=== PATIENT | female | born 1965 | race Caucasian/White ===

== ENCOUNTER 2017-05-14 10:31 | Observation (INO) | payer OTHER ==
--- NOTE | 2017-05-14 11:56 | DR.H&P ---
H&P - History & Physical for Day of: H&P Date: 05/14/17 - Chief Complaint Chief Complaint: CHEST PAIN, SOB - History of Present Illness History of Present Illness: 52 WF DIRECT ADMIT FROM DR HERRERA OFFICE WITH CO CHEST PAIN AND PRESSURE ON AND OFF FOR 1-2 DAYS. PT STATES SHE HAD SYNCOPE EPISODE EARLIER THIS WEEK AND CO CONTINUED DIZZINESS AND SOB. PT HAS PMH OF HTN AND COPD. PT HAD ABNORMAL EKG IN OFFICE, ADMIT FOR CP PROTOCOL, R/O AMI, RESP THERAPY, SERIAL CE'S BP AND LIPID CONTROL - Past Medical History Past Medical History: GERD, Hypertension - Family History Family Medical History: Coronary Artery Disease, Heart Failure, Hypertension - Social History Does patient currently use any type of tobacco product: Yes Have you used tobacco products in the last 12 months: Yes Type of Tobacco Use: Cigarettes Does any household member use tobacco: No Alcohol Use: None Drug Use: None - Review of Systems Constitutional: Weakness Eyes: No Symptoms Reported ENT: No Symptoms Reported Respiratory: Shortness of Breath Cardiovascular: Chest Pain, Light Headedness Gastrointestinal: No Symptoms Reported Genitourinary: No Symptoms Reported Musculoskeletal: No Symptoms Reported Skin: No Symptoms Reported Neurological: Other (DIZZINESS) Oriented: Normal Eyes: Normal Ear: Normal, Right Nose: Normal Throat: Normal Respiratory: RLL Diminished, LLL Diminished Cardiovascular: Tachycardia : Normal Auscultation: Bowel Sounds: Normal Palpation: Normal Tenderness: Normal Skin: Normal Musculoskeletal: Normal Psychiatric: Anxiety Speech Pattern: Clear, Appropriate - Assessment/Plan (1) Chest pain Status: Acute Plan: ADMIT, CARDIAC WORK UP, SERIAL CE'S, EKGS' CXR ON ADMISSION. BP AND LIPID CONTROL, CARDIAC MONITORING. RESP CONTULT, CT HEAD AND CAROTID ARTERY STUDIES (2) Shortness of breath Status: Acute (3) Dizziness Status: Acute (4) Syncopal episodes Status: Acute
[2017-05-14 13:08] LABS: BASOPHILS # (AUTO) 0.1 X10^3/uL (0.0-0.1); BASOPHILS % (AUTO) 0.6 % (0.2-1.0); EOSINOPHILS # (AUTO) 0.1 x10^3/uL (0.0-0.2); EOSINOPHILS % (AUTO) 0.7 % (0.9-2.9); HEMATOCRIT 50.8 % (36.0-47.0); HEMOGLOBIN 17.1 g/dL (12.0-16.0); LYMPHOCYTES # (AUTO) 2.9 X10^3/uL (1.3-2.9); LYMPHOCYTES % (AUTO) 18.1 % (21.0-51.0); MEAN CORPUSCULAR HEMOGLOBIN 29.8 pg (27.0-34.0); MEAN CORPUSCULAR HGB CONC 33.7 g/dL (33.0-35.0); MEAN CORPUSCULAR VOLUME 88.6 fL (80.0-100.0); MEAN PLATELET VOLUME 8.5 fL (7.4-11.0); MONOCYTES # (AUTO) 0.9 x10^3/uL (0.3-0.8); MONOCYTES % (AUTO) 5.9 % (0.0-13.0); NEUTROPHILS # (AUTO) 11.8 x10^3/uL (2.2-4.8); NEUTROPHILS % (AUTO) 74.7 % (42.0-75.0); PLATELET COUNT 316 X10^3/uL (150.0-450.0); RED BLOOD COUNT 5.73 X10^6/uL (3.5-5.4); RED CELL DISTRIBUTION WIDTH 14.4 % (11.6-16.5); WHITE BLOOD COUNT 15.8 X10^3/uL (3.6-10.0)
[2017-05-14 13:24] LABS: ALANINE AMINOTRANSFERASE 30 Units/L (12-78); ALBUMIN 3.7 g/dL (3.4-5.0); ALKALINE PHOSPHATASE 106 Units/L (46-116); ASPARTATE AMINO TRANSFERASE 21 Units/L (15-37); BLOOD UREA NITROGEN 12 mg/dL (7-18); CARBON DIOXIDE 32.8 mmol/L (21-32); CHLORIDE 102 mmol/L (98-107); COR NA(FOR HYPERGLY) 142 mmol/L (136-145); CREATININE 0.66 mg/dL (0.55-1.02); MAGNESIUM 2.2 mg/dL (1.7-2.9); SODIUM 141 mmol/L (136-145); TOTAL PROTEIN 7.6 g/dL (6.4-8.2); eGFR BLACK RACES > 60 (>60); eGFR NON BLACK RACES > 60 (>60)
[2017-05-14 13:36] LABS: CKMB % 1.8 % (<4); CREATINE KINASE 55 Units/L (26-192); CREATINE KINASE MB < 1.0 ng/mL (0-4.0); TROPONIN I < 0.02 ng/mL (0-1.5)
[2017-05-14] MEDS: PROTONIX INJ 40 MG VIAL IVP SCH (14:10)
[2017-05-14 14:19] LABS: BILIRUBIN,URINE NEGATIVE (NEGATIVE); BLOOD/HEMOGLOBIN,URINE NEGATIVE (NEGATIVE); GLUCOSE, URINE NEGATIVE (NEGATIVE); KETONES,URINE NEGATIVE (NEGATIVE); LEUKOCYTE ESTERASE ,URINE NEGATIVE (NEGATIVE); NITRITES,URINE NEGATIVE (NEGATIVE); PROTEIN,URINE NEGATIVE (NEGATIVE); UROBILINOGEN,URINE NORMAL (NORMAL)
[2017-05-14 14:32] LABS: APPEARANCE,URINE CLEAR (CLEAR); BACTERIA,URINE NEGATIVE /HPF (NEGATIVE); COLOR,URINE YELLOW (YELLOW); RBC,URINE 0 /HPF (NEGATIVE); SQUAMOUS EPITHELIAL CELL,UR NEGATIVE /HPF (NEGATIVE)
[2017-05-14 14:37] VITALS: BMI 21.1
--- NOTE | 2017-05-14 16:04 | RAD ---
Examination: Chest, PA and lateral views History: Syncope, hypertension Findings: Normal cardiac size with clear lungs and pleural spaces. There is no mediastinal or hilar a bnormality. Impression: No significant abnormality identified. Reported By:
--- NOTE | 2017-05-14 16:12 | VAS ---
CAROTID ULTRASOUND CLINICAL INDICATION: Syncope PROCEDURE: Pulsed wave and color-flow duplex imaging was utilized to evaluate the extracranial caroti d arteries. COMPARISON: None FINDINGS: Right carotid: Plaque at the bifurcation. No hemodynamically significant stenosis involving the right carotid artery . The velocities are as follows: Distal CCA peak systolic velocity 68 cm/sec and peak end-diastolic velocity 15 cm/sec, ICA peak systo lic velocity 78 cm/sec and peak end-diastolic velocity 38 cm/sec. Flow within the right vertebral and right ECA is directed antegrade. ICA/CCA ratio: 1.15 Left carotid: Plaque at the bifurcation. No hemodynamically significant stenosis involving the left carotid artery. The velocities are as follows: Distal CCA peak systolic velocity 72 cm/sec and peak end-diastolic velocity 18 cm/sec, ICA peak systo lic velocity 59 cm/sec and peak end-diastolic velocity 21 cm/sec. Flow within the left vertebral and left ECA is directed antegrade. ICA/CCA ratio: 0.81 IMPRESSION: 1. No hemodynamically significant stenosis involving either the right or left ICA. 2. Normal peak systolic velocity corresponds to a less than 50% diameter stenosis of the right ICA. 3. Normal peak systolic velocity corresponds to a less than 50% diameter stenosis of the left ICA. Reported By:
--- NOTE | 2017-05-14 16:15 | CT ---
HEAD CT WITHOUT IV CONTRAST CLINICAL INDICATION: Syncope TECHNIQUE: Axial CT images from skull base to vertex without IV contrast.Dose reduction techniques in cluding Automated Exposure Control (AEC) and adjustment of mA and kV were utlized. COMPARISON: None FINDINGS: There is no abnormal brain parenchymal density. There is no evidence of acute infarction, intracrani al hemorrhage, mass or mass effect, or abnormal extra-axial collection. The density of the larger dur al venous sinuses is normal. The ventricles are normal in size, shape and position. The skull base an d calvarium are normal. The included paranasal sinuses and mastoid air cells are predominantly clear. IMPRESSION: 1. No acute intracranial abnormality. Reported By:
[2017-05-14] MEDS ORDERED: K-LYTE EFFERVESCENT PO PRN (17:55)
[2017-05-14 18:31] LABS: CKMB % 2.2 % (<4); CREATINE KINASE 45 Units/L (26-192); CREATINE KINASE MB < 1.0 ng/mL (0-4.0); TROPONIN I < 0.02 ng/mL (0-1.5)
[2017-05-15 01:14] LABS: CKMB % 2.3 % (<4); CREATINE KINASE 43 Units/L (26-192); CREATINE KINASE MB < 1.0 ng/mL (0-4.0); TROPONIN I < 0.02 ng/mL (0-1.5)
[2017-05-15 05:19] LABS: BASOPHILS # (AUTO) 0.1 X10^3/uL (0.0-0.1); BASOPHILS % (AUTO) 0.6 % (0.2-1.0); EOSINOPHILS # (AUTO) 0.3 x10^3/uL (0.0-0.2); EOSINOPHILS % (AUTO) 2.9 % (0.9-2.9); HEMATOCRIT 44.7 % (36.0-47.0); LYMPHOCYTES # (AUTO) 3.4 X10^3/uL (1.3-2.9); LYMPHOCYTES % (AUTO) 28.5 % (21.0-51.0); MEAN CORPUSCULAR HEMOGLOBIN 29.8 pg (27.0-34.0); MEAN CORPUSCULAR HGB CONC 33.5 g/dL (33.0-35.0); MEAN CORPUSCULAR VOLUME 88.7 fL (80.0-100.0); MEAN PLATELET VOLUME 9.1 fL (7.4-11.0); MONOCYTES # (AUTO) 1.1 x10^3/uL (0.3-0.8); MONOCYTES % (AUTO) 8.9 % (0.0-13.0); NEUTROPHILS % (AUTO) 59.1 % (42.0-75.0); PLATELET COUNT 280 X10^3/uL (150.0-450.0); RED BLOOD COUNT 5.04 X10^6/uL (3.5-5.4); RED CELL DISTRIBUTION WIDTH 14.5 % (11.6-16.5); WHITE BLOOD COUNT 11.8 X10^3/uL (3.6-10.0)
[2017-05-15 05:41] LABS: CHOL/HDL RATIO 2.7 (0.0-5.0)
[2017-05-15 06:32] LABS: ALANINE AMINOTRANSFERASE 23 Units/L (12-78); ALBUMIN 2.9 g/dL (3.4-5.0); ALKALINE PHOSPHATASE 91 Units/L (46-116); ASPARTATE AMINO TRANSFERASE 20 Units/L (15-37); BLOOD UREA NITROGEN 14 mg/dL (7-18); CALCIUM 8.6 mg/dL (8.5-10.1); CHLORIDE 104 mmol/L (98-107); COR CA(FOR HYPOALB) 9.5 mg/dL (8.5-10.1); CREATININE 0.49 mg/dL (0.55-1.02); SODIUM 139 mmol/L (136-145); eGFR BLACK RACES > 60 (>60); eGFR NON BLACK RACES > 60 (>60)
[2017-05-15] MEDS ORDERED: COLACE CAP 100 MG PO PRN (07:00)
[2017-05-15] MEDS ORDERED: ASPIRIN PO SCH (09:00)
[2017-05-15] MEDS: PROTONIX INJ 40 MG VIAL IVP SCH (09:43)
[2017-05-15] MEDS ORDERED: NICOTINE PATCH TD SCH (10:00)
[2017-05-15] MEDS ORDERED: MILK OF MAGNESIA PO PRN (14:14)
[2017-05-15 16:27] VITALS: BP 141/97
--- NOTE | 2017-05-15 16:36 | PCM.PROG ---
Progress Note - Progress Note for Day of Date: 05/15/17 - Past Medical Family Social History Past Med/Fam/Surg Hx: No changes since H&P Allergies: Allergies No Known Drug Allergies Allergy (Verified 05/14/17 12:55) - Review of Systems ROS: No change since H&P - Vital Signs and I&O's Vital Signs: Temperature 98.1 F Pulse Rate [Right Brachial] 84 Pulse Rate 100 Respiratory Rate 20 Blood Pressure [Right Arm] 141/97 O2 Sat by Pulse Oximetry 98 Intake and Output: Intake & Output 05/13/17 05/14/17 05/15/17 05/16/17 11:59 11:59 11:59 11:59 Intake Total 960 1220 Output Total 300 Balance 660 1220 - Physical Exam Oriented: Normal Eyes: Normal Ear: Normal, Right Nose: Normal Throat: Normal Respiratory: Normal Cardiovascular: Normal : Normal Auscultation: Bowel Sounds: Normal Palpation: Normal Tenderness: Normal Skin: Normal Musculoskeletal: Normal Psychiatric: Anxiety Speech Pattern: Clear, Appropriate - Laboratory and Diagnostics Result Diagrams: 05/15/17 05:00 05/15/17 04:00 Labs: Laboratory WBC 11.8 X10^3/uL (3.6-10.0) H 05/15/17 05:00 RBC 5.04 X10^6/uL (3.5-5.4) 05/15/17 05:00 Hgb 15.0 g/dL (12.0-16.0) D 05/15/17 05:00 Hct 44.7 % (36.0-47.0) 05/15/17 05:00 MCV 88.7 fL (80.0-100.0) 05/15/17 05:00 MCH 29.8 pg (27.0-34.0) 05/15/17 05:00 MCHC 33.5 g/dL (33.0-35.0) 05/15/17 05:00 RDW 14.5 % (11.6-16.5) 05/15/17 05:00 Plt Count 280 X10^3/uL (150.0-450.0) 05/15/17 05:00 MPV 9.1 fL (7.4-11.0) 05/15/17 05:00 Neut % 59.1 % (42.0-75.0) 05/15/17 05:00 Lymph % 28.5 % (21.0-51.0) 05/15/17 05:00 [place] % 8.9 % (0.0-13.0) 05/15/17 05:00 Eos % 2.9 % (0.9-2.9) 05/15/17 05:00 Baso % 0.6 % (0.2-1.0) 05/15/17 05:00 Neut # 7.0 x10^3/uL (2.2-4.8) H 05/15/17 05:00 Lymph # 3.4 X10^3/uL (1.3-2.9) H 05/15/17 05:00 [place] # 1.1 x10^3/uL (0.3-0.8) H 05/15/17 05:00 Eos # 0.3 x10^3/uL (0.0-0.2) H 05/15/17 05:00 Baso # 0.1 X10^3/uL (0.0-0.1) 05/15/17 05:00 Absolute Nucleated RBC 0.0 /100WBC 05/15/17 05:00 INR Target Range - 05/14/17 12:52 INR 0.97 (0.8-1.3) 05/14/17 12:52 PTT 28.8 SECONDS (22.9-36.5) 05/14/17 12:52 PTT Comment - 05/14/17 12:52 D-Dimer 263 ng/mL (0-400) 05/14/17 12:52 Sodium 139 mmol/L (136-145) 05/15/17 04:00 Corrected Sodium TNP 05/15/17 04:00 Potassium 4.6 mmol/L (3.5-5.1) 05/15/17 04:00 Chloride 104 mmol/L (98-107) 05/15/17 04:00 Carbon Dioxide 29.0 mmol/L (21-32) 05/15/17 04:00 BUN 14 mg/dL (7-18) 05/15/17 04:00 Creatinine 0.49 mg/dL (0.55-1.02) L 05/15/17 04:00 Est GFR (MDRD) Af Amer > 60 (>60) 05/15/17 04:00 Est GFR (MDRD) Non-Af > 60 (>60) 05/15/17 04:00 Glucose 101 mg/dL (65-99) H 05/15/17 04:00 Calcium 8.6 mg/dL (8.5-10.1) 05/15/17 04:00 Corrected Calcium 9.5 mg/dL (8.5-10.1) 05/15/17 04:00 Magnesium 2.2 mg/dL (1.7-2.9) 05/14/17 12:52 Total Bilirubin 0.30 mg/dL (0.2-1.0) 05/15/17 04:00 AST 20 Units/L (15-37) 05/15/17 04:00 ALT 23 Units/L (12-78) 05/15/17 04:00 Alkaline Phosphatase 91 Units/L (46-116) 05/15/17 04:00 Creatine Kinase 43 Units/L (26-192) 05/15/17 00:20 CK-MB (CK-2) < 1.0 ng/mL (0-4.0) 05/15/17 00:20 CK/CKMB % Calc 2.3 % (<4) 05/15/17 00:20 Troponin I < 0.02 ng/mL (0-1.5) 05/15/17 00:20 Total Protein 6.0 g/dL (6.4-8.2) L 05/15/17 04:00 Albumin 2.9 g/dL (3.4-5.0) L 05/15/17 04:00 Globulin 3.1 g/dL (2.5-4.5) 05/15/17 04:00 Albumin/Globulin Ratio 0.9 Ratio (1.1-2.1) L 05/15/17 04:00 Triglycerides 105 mg/dL (0-150) 05/15/17 05:00 Cholesterol 141 mg/dL (0-200) 05/15/17 05:00 LDL Cholesterol, Calc 68 mg/dL (0-100) 05/15/17 05:00 HDL Cholesterol 52 mg/dL (40-60) 05/15/17 05:00 Cholesterol/HDL Ratio 2.7 (0.0-5.0) 05/15/17 05:00 Specimen Type Clean catch urine 05/14/17 14:09 Urine Color Yellow (YELLOW) 05/14/17 14:09 Urine Appearance Clear (CLEAR) 05/14/17 14:09 Urine pH 6.0 (5.0 - 8.0) 05/14/17 14:09 Ur Specific [place] 1.005 (1.000-1.030) 05/14/17 14:09 Urine Protein Negative (NEGATIVE) 05/14/17 14:09 Urine Glucose (UA) Negative (NEGATIVE) 05/14/17 14:09 Urine Ketones Negative (NEGATIVE) 05/14/17 14:09 Urine Occult Blood Negative (NEGATIVE) 05/14/17 14:09 Urine Nitrite Negative (NEGATIVE) 05/14/17 14:09 Urine Bilirubin Negative (NEGATIVE) 05/14/17 14:09 Urine Urobilinogen Normal (NORMAL) 05/14/17 14:09 Ur Leukocyte Esterase Negative (NEGATIVE) 05/14/17 14:09 Urine RBC 0 /HPF (NEGATIVE) 05/14/17 14:09 Urine WBC 0 /HPF (NEGATIVE) 05/14/17 14:09 Ur Squamous Epith Cells Negative /HPF (NEGATIVE) 05/14/17 14:09 Urine Bacteria Negative /HPF (NEGATIVE) 05/14/17 14:09 Ur Culture Indicated? No/not indicated 05/14/17 14:09 - Plan (1) Chest pain Status: Acute Plan: SERIAL CARDIAC ENZYMES AND EKG, TELEMETRY, SUPPLEMENTAL OXYGEN, CONTINUE TO MONITOR (2) Syncopal episodes Status: Acute Qualifiers: Syncope type: unspecified Qualified Code(s): R55 - Syncope and collapse Plan: CONTINUE TO MONITOR
[2017-05-15 17:47] LABS: CREATINE KINASE 42 Units/L (26-192); CREATINE KINASE MB < 1.0 ng/mL (0-4.0); TROPONIN I < 0.02 ng/mL (0-1.5)
[2017-05-15 17:52] LABS: CKMB % 2.4 % (<4)
[2017-05-15] MEDS ORDERED: CHECK PATCH XX SCH (21:00)
== END 2017-05-15 20:20 | disposition home or self-care (01) ==
LOC: MED/SURG 10:31 → UNDOADMOB 10:31 → MED/SURG 11:50
PROVIDERS: ADMIT Internal Medicine; ATTEND Internal Medicine
DX: R07.89 Other chest pain (principal); R42 Dizziness and giddiness; R55 Syncope and collapse; R06.02 Shortness of breath; I10 Essential (primary) hypertension; J44.9 Chronic obstructive pulmonary disease, unspecified; R94.31 Abnormal electrocardiogram [ECG] [EKG]; K21.9 Gastro-esophageal reflux disease without esophagitis; D72.828 Other elevated white blood cell count; R73.09 Other abnormal glucose
CPT/HCPCS: 36415; 70450; 71046; 80053; 80061; 81001; 82550; 82553; 83735; 84484; 85025; 85378; 85610; 85730; 93005; 93010; 93880; 94760; A4222; C9113; G0378

== ENCOUNTER 2017-07-16 06:49 | Emergency (ER) | payer OTHER ==
[2017-07-16 07:16] VITALS: BP 139/74; BMI 20.9
--- NOTE | 2017-07-16 07:20 | DR.EXTPAIN ---
HPI - Time seen Time seen: 07:15 - PCP Primary Care Physician: chapin espinosa - HPI Comment HPI Comment: increase swelling and pain since. - Complaint/Symptoms Chief Complaint Doctor Comments: FELL, INJURY RT WRIST. HAPPEN 21;00 pm last night at work. Chief Complaint:: Patient c/o right wrist pain s/p fall at work aound 9pm last night. Mild swelling noted to right wrist Self Treatment fo Chief Complaint: None - Source History Provided: Patient - Mode of arrival Mode of Arrival: Ambulatory - Timing Onset of Chief Complaint: 07/15/17 - Context History of: None - Associated signs and symptoms Associated Signs and Symptoms: Pain, Swelling, Bruising PMH - PMH Past Medical History: Yes Past Medical History: GERD, Hypertension Past Surgical History: Yes Surgical History: Cholecystectomy, Hysterectomy Past Surgical History Comment: tubal - Family History History of Family Medical Conditions: Yes Family Medical History: [place], Hypertension - Social History Does patient currently use any type of tobacco product: Yes Have you used tobacco products in the last 12 months: Yes Type of Tobacco Use: Cigarettes How many years tobacco product used: 13 Does any household member use tobacco: No Alcohol Use: Occasionally Do you use any recreational Drugs:: No Lives Where: Home - infectious screening In the last 2 months have you had wt loss of >10#?: NO Have you had fever, night sweats or hemotysis?: No Have you traveled outside the country in the last 6 months?: No Isolation: Standard ROS - Review of Systems Constitutional: No Symptoms Reported Eyes: No Symptoms Reported ENTM: No Symptoms Reported Respiratoy: No Symptoms Reported Cardiovascular: No Symptoms Reported Gastrointestinal/Abdominal: No Symptoms Reported Genitourinary: No Symptoms Reported Neurological: No Symptoms Reported Musculoskeletal: Right, Wrist Integumentary: Bruises (and swelling rt wrist.) Hematologic/Lymphatic: No Symptoms Reported Endocrine: No Symptoms Reported All Other Systems: Reviewed and Negative PE - Vital Signs Vitals: Temperature 992 F Pulse Rate 73 Respiratory Rate 18 Blood Pressure [Right Arm] 141/97 Blood Pressure 139/74 O2 Sat by Pulse Oximetry 98 - General Limitations: No Limitations General Appearance: Alert - Head Head Exam: Normal Inspection - Eyes Eye exam: Normal Appearance - ENT ENT Exam: Normal External Ear Exam - Neck Neck Exam: Trachea Midline - Chest Chest Inspection: Symmetric Chest Wall Rise - Respiratory Respiratory Exam: Normal Lung Sounds Bilat Respiratory Exam: Bilateral Clear to Auscultation - Cardiovascular Cardiovascular Exam: Regular Rate, Normal Rhythm, Normal Heart Sounds - Abdominal Exam Abdominal Exam: Normal Inspection - Extremities Extremities Exam: Tenderness (RT WRIST TENDER AND SWOLLEN. PULSE INTACT.). negative: Full ROM (DECREASE ROM.) - Lower Extremities Neurovascular/Tendon Exam: Normal Capillary Refill Gait Exam: Observed and Normal - Back Back Exam: Normal Inspection - Neurological Neurological Exam: Alert, Oriented X3 - Psychiatric Psychiatric Exam: Normal Affect, Normal Mood - Skin Skin Exam: Erythema MDM - Differential Diagnosis Differential Diagnosis: Contusion, Fracture, Sprain Course - Treatment Treatment: SEE ORDERS. - Education/Counseling Education/Counseling: Patient, Education Educated On: Diagnosis, Needs for Follow Up ROR - XRAY XRAY Interpreted by: Radiologist XRAY Findings: REPORT DISCUSS WITH PATIENT. - Diagnosis Discharge Problem: Right wrist sprain Qualifiers: Encounter type: initial encounter Qualified Code(s): S63.501A - Unspecified sprain of right wrist, initial encounter - Discharge Plan Condition: Stable Prescriptions: Ibuprofen [MOTRIN TAB 600 MG *] 600 mg PO TID PRN #30 tab PRN Reason: Pain/Inflammation Tramadol HCl 50 mg PO Q8H PRN #15 tablet PRN Reason: - Follow ups/Referrals Follow ups/Referrals: CHAPIN ESPINOSA [Primary Care Provider] - 3 days - Instructions Instructions: Wrist Sprain Additional Instructions: RETURN TO ED IF WORSE. YOU ALSO HAVE RT MIDDLE FINGER SPRAIN.
--- NOTE | 2017-07-16 07:26 | RAD ---
Examination: Right wrist, three views History: Fell Findings: No definite wrist fracture, dislocation or other acute injury identified. There is slight u lnar positive variant. Joint spaces are maintained. Impression: No acute injury identified. Reported By:
[2017-07-16] MEDS ORDERED: TORADOL 60 MG VIAL IM ONE (07:37)
[2017-07-16] MEDS ORDERED: TORADOL 60 MG VIAL ONE (07:38)
== END 2017-07-16 07:50 | disposition home or self-care (01) ==
LOC: ER 06:49
DX: S63.501A Unspecified sprain of right wrist, initial encounter (principal); W19.XXXA Unspecified fall, initial encounter; Y92.69 Other specified industrial and construction area as the place of occurrence of the external cause
CPT/HCPCS: 73100; 96372; 99282; J1885